=== PATIENT | female | born 1980 | race Caucasian/White ===

== ENCOUNTER → 2016-09-01 | Outpatient (REF) ==
[~2016-09-01] MED LIST: PRENATAL1 TA1 PO
== END ==
LOC: WSOH 13:54
DX: Z01.89 Encounter for other specified special examinations (principal)

== ENCOUNTER → 2019-07-14 | Outpatient (CLI) | payer BC | LOC: MC.RAD 10:26 | DX: Z12.31 Encounter for screening mammogram for malignant neoplasm of breast (principal); Z98.890 Other specified postprocedural states ==

== ENCOUNTER → 2020-08-23 | Outpatient (CLI) | payer BC | LOC: MC.RAD 08:45 | DX: Z12.31 Encounter for screening mammogram for malignant neoplasm of breast (principal) ==

== ENCOUNTER → 2021-10-03 | Outpatient (CLI) | payer BC | LOC: MC.RAD 14:44 | DX: Z12.31 Encounter for screening mammogram for malignant neoplasm of breast (principal) ==